=== PATIENT | female | born 1945 | race Caucasian/White ===

== ENCOUNTER 2019-03-12 07:23 | Outpatient (CLI) | payer MEDICARE ==
[~2019-03-12] VITALS: Ht 165.1 cm; Wt 68.0 kg
[2019-03-12 07:46] LABS: TOTAL HEMOGLOBIN 12.4 G/dl (12.0-16.0)
[2019-03-12] MEDS ORDERED: albuterol 2.5 MG/3 ML nebule NEB PRN (08:05)
== END 2019-03-12 23:59 | disposition home or self-care (01) ==
LOC: RT 07:23
PROVIDERS: ATTEND Internal Medicine
DX: J98.4 Other disorders of lung (principal); Z87.891 Personal history of nicotine dependence
CPT/HCPCS: 85018; 94060; 94727; 94729; 94760

== ENCOUNTER 2021-10-25 07:08 | Day surgery (SDC) | payer MEDICARE ==
[2021-10-24 15:49] LABS: BASOPHILS % (AUTO) 0.7 % (0-1); EOSINOPHILS # (AUTO) 0.3 X10'3 (0-0.9); EOSINOPHILS % (AUTO) 4.4 % (0-6); HEMATOCRIT 36.5 % (35.0-45.0); HEMOGLOBIN 11.8 g/dl (12.0-16.0); LYMPHOCYTES # (AUTO) 1.6 X10'3 (1.1-4.8); LYMPHOCYTES % (AUTO) 24.8 % (21-51); MEAN CORPUSCULAR HEMOGLOBIN 28.9 PG (27.0-31.0); MEAN CORPUSCULAR HGB CONC 32.4 g/dL (33.0-36.5); MEAN CORPUSCULAR VOLUME 89.3 FL (78-98); MEAN PLATELET VOLUME 8.7 FL (7.4-10.4); MONOCYTES # (AUTO) 0.8 X10'3 (0-0.9); MONOCYTES % (AUTO) 12.9 % (2-12); NEUTROPHILS # (AUTO) 3.8 X10'3 (1.8-7.7); NEUTROPHILS % (AUTO) 57.2 % (42-75); PLATELET COUNT 302 X10'3 (140-440); RED BLOOD COUNT 4.08 X10'6 (4.20-5.60); RED CELL DISTRIBUTION WIDTH 14.4 % (11.5-14.5); WHITE BLOOD COUNT 6.6 X10'3 (4.5-11.0)
[2021-10-24 15:57] LABS: ALBUMIN 3.8 G/DL (3.4-5.0); ANION GAP 2 (8-16); BLOOD UREA NITROGEN 20 MG/DL (7-18); BUN/CREATININE RATIO 17.7 (6.6-38.0); CALCIUM 9.3 MG/DL (8.5-10.1); CHLORIDE 107 MMOL/L (99-107); CREATININE 1.13 MG/DL (0.40-0.90); GLUCOSE 85 MG/DL (70-104); POTASSIUM 4.5 MMOL/L (3.5-5.1); SODIUM 138 MMOL/L (135-145); TOTAL CARBON DIOXIDE 28.6 MMOL/L (24-32); eGFR 47 ML/MIN
[~2021-10-25] VITALS: Ht 165.1 cm; Wt 72.9 kg
[2021-10-25] VITALS (16 sets, daily range): BP systolic 107–143; BP diastolic 54–84
[2021-10-25] MEDS ORDERED: amiodarone 150mg/dext, iso-os 100 ML IV ONE (07:35)
[2021-10-25] MEDS ORDERED: MIDAZolam 1mg/ml 10ml vial IV ONE (07:35)
[2021-10-25] MEDS ORDERED: diphenhydrAMINE 25mg capsule PO ONE (07:35)
[2021-10-25] MEDS ORDERED: atropine 0.1mg/ml 10ml syringe IV ONE (07:35)
[2021-10-25] MEDS ORDERED: LORazepam 0.5 MG tablet PO ONE (07:35)
[2021-10-25] MEDS ORDERED: morphine 10mg/ml inj. IV ONE (07:35)
[2021-10-25] MEDS ORDERED: LEVO150T8 PO (08:10)
[2021-10-25] MEDS ORDERED: ATOR-2 PO (08:10)
[2021-10-25] MEDS ORDERED: GABA300C PO (08:10)
[2021-10-25] MEDS ORDERED: LISI5TAB22 PO (08:10)
[2021-10-25] MEDS ORDERED: BUPR300T86 PO (08:10)
[2021-10-25] MEDS ORDERED: CARV25TA2 PO (08:10)
[2021-10-25] MEDS ORDERED: APIX5TAB3 PO (08:10)
[2021-10-25] MEDS ORDERED: DILT-88 PO (08:10)
[2021-10-25] MEDS ORDERED: FLUT1BLS13 INH (08:16)
[2021-10-25] MEDS ORDERED: AMIO200T61 PO (08:17)
== END 2021-10-25 12:00 | disposition home or self-care (01) ==
LOC: SSTAY O 07:08
PROVIDERS: ATTEND Internal Medicine Cardiovascular Disease
DX: I48.19 Other persistent atrial fibrillation (principal); E78.5 Hyperlipidemia, unspecified; J44.9 Chronic obstructive pulmonary disease, unspecified; I11.0 Hypertensive heart disease with heart failure; I50.30 Unspecified diastolic (congestive) heart failure; E03.9 Hypothyroidism, unspecified; F41.9 Anxiety disorder, unspecified; F32.A Depression, unspecified; Z85.3 Personal history of malignant neoplasm of breast; Z85.528 Personal history of other malignant neoplasm of kidney; Z86.73 Personal history of transient ischemic attack (TIA), and cerebral infarction without residual deficits; Z98.890 Other specified postprocedural states; Z87.891 Personal history of nicotine dependence; Z79.01 Long term (current) use of anticoagulants; Z79.899 Other long term (current) drug therapy; Z83.6 Family history of other diseases of the respiratory system; Z82.49 Family history of ischemic heart disease and other diseases of the circulatory system
CPT/HCPCS: 36415; 80048; 85025; 85610; 92960; 93005; 94799; J2250; J2274; Q0163

== ENCOUNTER 2022-09-05 12:33 | Outpatient (CLI) | payer MEDICARE ==
[~2022-09-05 12:33] MED LIST: AMIO200T61 PO; APIX5TAB3 PO; ATOR-2 PO; BUPR300T86 PO; CARV25TA2 PO; DILT-88 PO; FLUT1BLS13 INH; GABA300C PO; LEVO150T8 PO; LISI5TAB22 PO
== END 2022-09-05 23:59 | disposition home or self-care (01) ==
LOC: RAD 12:33
PROVIDERS: ATTEND Internal Medicine Cardiovascular Disease
DX: I08.8 Other rheumatic multiple valve diseases (principal); R06.02 Shortness of breath
CPT/HCPCS: 93306